=== PATIENT | female | born 1940 | race Caucasian/White ===

== ENCOUNTER 2022-07-28 18:02 | Inpatient (IN) | payer MEDICARE, OTHER ==
[~2022-07-28] VITALS: Ht 157.5 cm; Wt 56.2 kg
[2022-07-28 18:09] VITALS: BP 113/46
--- NOTE | 2022-07-28 18:24 | NUR ---
PER ERMD ONLY GIVE 500CC OF FLUIDS
[2022-07-28] MEDS ORDERED: ONDANSETRON 4 MG/2 ML VIAL IVP ONE (18:30)
[2022-07-28] MEDS ORDERED: NACL 0.9% 500 ML IV ONE (18:30)
--- NOTE | 2022-07-28 18:41 | NUR ---
PT TAKEN TO CT VIA ADRIANA
--- NOTE | 2022-07-28 18:45 | NUR ---
81YO FEMALE PT BIB [facility] C/O SYNCOPE AND N/V-BLOOD XTODAY. PER FACILITY, PT HYPOTENSIVE AND WAS AROUSABLE TO TOUCH. AT ARRIVAL PT W/ MILD BP IMPROVEMENT AND AAOX4. C/O BACK PAIN , PAIN AT MOST ON MOVEMENT OR TOUCH. PT W/ RECENT L5 INJURY AND UNAMBULATORY SINCE. ABDOMEN FLAT AND NON TENDER. ON HORSE SHOW MANAGER. BED AT LOWEST POSITION, BED RAILS UPX2. HX: CA BREAST, HTN. OSTEOPOROSIS, A FIB, HDL, HTN CHF, HYPOTHYROIDISM, CKD3 (NO DIALYSIS) NKA
[2022-07-28 19:22] LABS: BASOPHILS # (AUTO) 0.1 K/uL (0.00-0.22); BASOPHILS % (AUTO) 0.6 % (0.0-2.0); EOSINOPHILS # (AUTO) 0.2 K/uL (0-0.4); EOSINOPHILS % (AUTO) 1.4 % (0.0-4.0); HEMATOCRIT 38.8 % (36-48); HEMOGLOBIN 12.8 g/dL (12.0-16.0); LYMPHOCYTES # (AUTO) 0.4 K/uL (2.5-16.5); LYMPHOCYTES % (AUTO) 2.9 % (20.5-51.1); MEAN CORPUSCULAR HEMOGLOBIN 32 pg (27-31); MEAN CORPUSCULAR HGB CONC 33 g/dL (33-37); MEAN CORPUSCULAR VOLUME 95.9 fL (80-94); MONOCYTES # (AUTO) 0.6 K/uL (0.8-1.0); MONOCYTES % (AUTO) 4.6 % (1.7-9.3); NEUTROPHILS # (AUTO) 11.5 K/uL (1.8-7.7); NEUTROPHILS % (AUTO) 90.5 % (42.2-75.2); PLATELET COUNT (AUTO) 131 K/uL (140-450); RED BLOOD CELL COUNT(AUTO) 4.04 MIL/uL (4.20-5.40); RED CELL DISTRIBUTION WIDTH 15.4 % (11.6-13.7); WHITE BLOOD COUNT (AUTO) 12.7 K/uL (4.8-10.8)
--- NOTE | 2022-07-28 19:23 | NUR ---
PT SON RAYMON LEFT CONTACT INFO
--- NOTE | 2022-07-28 19:31 | NUR ---
REPORT GIVEN TO BART RN. TRANSFER OF CARE AT THIS TIME
--- NOTE | 2022-07-28 19:34 | NUR ---
COVID-19 swab collected and sent to lab.
[2022-07-28 19:44] LABS: ALBUMIN 2.7 g/dL (3.4-5.0); ANION GAP 12.5 (8-16); ASPARTATE AMINOTRANSFERASE 58 U/L (15-37); CARBON DIOXIDE 34.5 mmol/L (21-32); CHLORIDE 89 mmol/L (98-107); CREATININE 1.5 mg/dL (0.6-1.3); GLUCOSE 104 mg/dL (74-106); LIPASE 339 U/L (73-393); SODIUM SERUM 133 mmol/L (136-145)
[2022-07-28 19:48] LABS: UREA NITROGEN, BLOOD 83 mg/dL (7-18)
--- NOTE | 2022-07-28 19:54 | NUR ---
Spoke with patient's son to update patient's status.
--- NOTE | 2022-07-28 20:07 | NUR ---
BP 88/46 after NSS 500 ml bolus, Dr. Gross notified.
--- NOTE | 2022-07-28 20:09 | NUR ---
Dr. Gross examining patient.
[2022-07-28] MEDS ORDERED: POTA10TA70 PO (20:30)
[2022-07-28] MEDS ORDERED: ZAR2.5 PO (20:30)
[2022-07-28] MEDS ORDERED: DOCU-299 PO (20:30)
[2022-07-28] MEDS ORDERED: SYN.05 PO (20:30)
[2022-07-28] MEDS ORDERED: MONT10TA35 PO (20:30)
[2022-07-28] MEDS ORDERED: TORS20TA3 PO (20:30)
[2022-07-28] MEDS ORDERED: APIX5TAB PO (20:30)
[2022-07-28] MEDS ORDERED: ATOR10TA PO (20:30)
[2022-07-28] MEDS ORDERED: BISO5TAB30 PO (20:30)
[2022-07-28] MEDS ORDERED: [UNRECOGNIZED DRUG - CODE] PO (20:30)
--- NOTE | 2022-07-28 20:30 | NUR ---
Med-rec reviewed.
--- NOTE | 2022-07-28 20:40 | NUR ---
Patient tried to get out her bed, and states " They gave me salty food. I have cell phone with me. Call my son.", Patient came to ER without cell phone and no food given when patient came.
[2022-07-28] MEDS ORDERED: FUROSEMIDE 20 MG/2 ML VIAL IVP ONE (22:05)
--- NOTE | 2022-07-28 22:20 | NUR ---
Started IV right forearm 22 G
--- NOTE | 2022-07-28 22:45 | NUR ---
Patient's son came and given lumbar brace for patient.
--- NOTE | 2022-07-28 22:58 | NUR ---
Given aKsio to patient as request.
--- NOTE | 2022-07-28 23:02 | NUR ---
Patient's refused to wear lumbar brace.
[2022-07-28] MEDS ORDERED: KCL 20 MEQ/WATER INJ PREMIX 200 ML IV ONE (23:05)
--- NOTE | 2022-07-28 23:21 | NUR ---
SON MINGO LEFT CONTACT INFO FOLLOWS
--- NOTE | 2022-07-28 23:26 | NUR ---
Called patient's son (Paulo) [phone] to update patient's status.
[2022-07-29] VITALS (8 sets, daily range): BP systolic 89–108; BP diastolic 41–57
--- NOTE | 2022-07-29 00:11 | NUR ---
Provided blankets as request.
[2022-07-29] MEDS ORDERED: NACL 0.9% 500 ML IV ONE ×2 (01:20→04:05)
--- NOTE | 2022-07-29 03:07 | NUR ---
Patient appears to be resting comfortably in bed. Respirations even and unlabored.
[2022-07-29] MEDS ORDERED: MIDODRINE 5 MG TAB PO SCH (04:20)
--- NOTE | 2022-07-29 04:27 | NUR ---
Re-position patient and changed diaper
--- NOTE | 2022-07-29 05:29 | NUR ---
Spoke to patient's son (Mr. Bates) to update- patient admission.
--- NOTE | 2022-07-29 07:18 | NUR ---
Report given to MICHAEL Nova and endorse care of patient.
--- NOTE | 2022-07-29 08:00 | NUR ---
Patient will be admitted to care of DR. TEAGUE. Admited to ICU. Will go to room ICU 7. Belongings list completed. Report to MICHAEL RODRÍGUEZ.
--- NOTE | 2022-07-29 08:00 | NUR ---
RECEIVED PT ALERT AND ORIENTED X3. ON O2 2L VIA NASAL CANNULA. SINUS KAREN ON MONITOR. BOWEL SOUNDS HYPOACTIVE AND PT STATES SHE'S PASSING GAS. CONTINENT BOWEL AND BLADDER. PERIPHERAL IV 22 GAUGE ON RIGHT FOREARM INTACT AND SALINE LOCKED. ORIENTED PT TO ROOM, ENVIRONMENT, AND PROCEDURES. SAFETY PRECAUTIONS IN PLACE.
[2022-07-29] MEDS ORDERED: ONDANSETRON 4 MG/2 ML VIAL IM/IVP PRN (08:20)
[2022-07-29] MEDS ORDERED: POTASSIUM CHLORIDE 10 MEQ TABER PO PRN (08:20)
[2022-07-29] MEDS ORDERED: PIPERACILLIN/TAZOBACTAM 3.375 GM in DEXTROSE 5% 50 ML IV SCH (08:20)
[2022-07-29] MEDS ORDERED: HYDROcodone/APAP 7.5/325 MG 1 TAB PO PRN (08:20)
[2022-07-29] MEDS ORDERED: DOCUSATE SODIUM 100 MG GELCAP PO PRN ×2 (08:20→13:25)
[2022-07-29] MEDS ORDERED: ZOLPIDEM 5 MG TAB PO PRN (08:20)
[2022-07-29] MEDS ORDERED: PIPERACILLIN/TAZOBACTAM 2.25 GM in DEXTROSE 5% 50 ML IV SCH (08:30)
[2022-07-29] MEDS ORDERED: RENAL DOSING PER PHARMACY MC PRN (08:35)
--- NOTE | 2022-07-29 09:14 | NUR ---
PATIENT HAS BEEN SCREENED AND CATEGORIZED MODERATE NUTRITION RISK. PATIENT WILL BE SEEN WITHIN 3-5 DAYS OF ADMISSION. REVIEWED BY DINA CURIEL RD
--- NOTE | 2022-07-29 10:00 | NUR ---
SEEN AND EXAMINED BY DR. TEAGUE.
[2022-07-29] MEDS: PANTOPRAZOLE 40 MG TABEC PO SCH (10:23)
[2022-07-29] MEDS: NACL 0.9% 1,000 ML IV SCH (10:24)
--- NOTE | 2022-07-29 11:30 | NUR ---
RECEIVED REPORT THAT PT HAD NKA. WENT THROUGH CHART AND FOUND [facility] RECORD INDICATING PT IS ALLERGIC TO PCN, SULFA, NSAIDS, AND ALENDRONATE. UPDATED ALLERGIC REACTION ON COMPUTER SYSTEM AND NOTIFIED DR. TEAGUE. NEW ORDER TO DC RAMSEY. ALLERGY ARMBAND PLACED.
[2022-07-29 11:33] LABS: CHOL/HDL RATIO 1.4 (1-4.5); FREE T4 (FREE THYROXINE) 1.12 ng/dL (0.76-1.46); MAGNESIUM 1.5 mg/dL (1.8-2.4); PHOSPHORUS 3.1 mg/dL (2.5-4.9); THYROID STIMULATING HORMONE 2.69 uIU/mL (0.34-3.74)
[2022-07-29 11:50] LABS: PROTHROMBIN TIME 13.2 secs (10.8-13.4)
[2022-07-29] MEDS ORDERED: MAG SULF 2000 MG/WATER PREMIX 50 ML IV SCH (13:00)
--- NOTE | 2022-07-29 13:15 | NUR ---
SEEN AND EXAMINED BY DR. DAVIS. NEW ORDER RECEIVED.
--- NOTE | 2022-07-29 14:00 | NUR ---
SPOKE WITH BECKY ENNIS REGARDING PT UPDATE. BECKY ENNIS WANTS TO KNOW WHEN PT WILL BE TRANSFERRED TO [place] [place]. FORWARDED CALL TO [facility].
[2022-07-29 14:01] LABS: HEMATOCRIT 33.6 % (36-48); MEAN CORPUSCULAR HEMOGLOBIN 32 pg (27-31); MEAN CORPUSCULAR HGB CONC 33 g/dL (33-37); MEAN CORPUSCULAR VOLUME 96.8 fL (80-94); PLATELET COUNT (AUTO) 118 K/uL (140-450); RED BLOOD CELL COUNT(AUTO) 3.47 MIL/uL (4.20-5.40); RED CELL DISTRIBUTION WIDTH 15.4 % (11.6-13.7); WHITE BLOOD COUNT (AUTO) 18.4 K/uL (4.8-10.8)
--- NOTE | 2022-07-29 14:30 | NUR ---
PER JUN, PT WILL BE TRANSFERRED TO [facility] TOMORROW.
[2022-07-29 15:33] LABS: LYMPHOCYTES % (MANUAL) 3 % (20-46); MONOCYTES % (MANUAL) 3 % (5-12)
--- NOTE | 2022-07-29 16:50 | NUR ---
SEEN AND EXAMINED BY DR. OLIVARES.
[2022-07-29 17:28] LABS: ANION GAP 11.3 (8-16); CARBON DIOXIDE 31.7 mmol/L (21-32); CHLORIDE 91 mmol/L (98-107); CREATININE 1.4 mg/dL (0.6-1.3); GLUCOSE 141 mg/dL (74-106); SODIUM SERUM 131 mmol/L (136-145)
[2022-07-29 17:29] LABS: UREA NITROGEN, BLOOD 75 mg/dL (7-18)
--- NOTE | 2022-07-29 18:42 | NUR ---
SEEN AND EXAMINED BY DR. MASSEY. NEW ORDERS RECEIVED.
--- NOTE | 2022-07-29 19:12 | NUR ---
ENDORSED TO RESIDENTIAL INSTALLER NURSE NADIRA FOR CONTINUITY OF CARE.
[2022-07-29] MEDS: ALBUTEROL SULFATE/IPRATROPIU 3 ML SOL IH SCH (20:13)
--- NOTE | 2022-07-29 20:19 | NUR ---
PT WAS SEEN AND ASSESSED. PT IS AWAKE AND ALERT, ON ROOM AIR WITH SPO2 OF 98%. NO RESPIRATORY DISTRESS NOTED AT THIS TIME. BILATERAL COARSE BREATH SOUNDS ON AUSCULTATION. HHN SCHEDULE TX GIVEN ORDERED AND PT TOLERATED TX WELL WITH NO ADVERSE REACTION. WILL CONTINUE TO MONITOR PT.
[2022-07-30] VITALS (16 sets, daily range): BP systolic 96–134; BP diastolic 41–85
[2022-07-30] MEDS: NACL 0.9% 1,000 ML IV SCH ×2 (01:00→17:40)
[2022-07-30] MEDS: ALBUTEROL SULFATE/IPRATROPIU 3 ML SOL IH SCH ×3 (01:31→20:45)
[2022-07-30 06:00] LABS: BASOPHILS # (AUTO) 0.1 K/uL (0.00-0.22); BASOPHILS % (AUTO) 0.7 % (0.0-2.0); EOSINOPHILS # (AUTO) 0.6 K/uL (0-0.4); EOSINOPHILS % (AUTO) 4.5 % (0.0-4.0); HEMATOCRIT 32.5 % (36-48); LYMPHOCYTES # (AUTO) 0.9 K/uL (2.5-16.5); LYMPHOCYTES % (AUTO) 7.3 % (20.5-51.1); MEAN CORPUSCULAR HEMOGLOBIN 33 pg (27-31); MEAN CORPUSCULAR HGB CONC 34 g/dL (33-37); MEAN CORPUSCULAR VOLUME 96.1 fL (80-94); MONOCYTES # (AUTO) 1.1 K/uL (0.8-1.0); MONOCYTES % (AUTO) 8.3 % (1.7-9.3); NEUTROPHILS % (AUTO) 79.2 % (42.2-75.2); PLATELET COUNT (AUTO) 105 K/uL (140-450); RED BLOOD CELL COUNT(AUTO) 3.38 MIL/uL (4.20-5.40); RED CELL DISTRIBUTION WIDTH 15.1 % (11.6-13.7); WHITE BLOOD COUNT (AUTO) 12.7 K/uL (4.8-10.8)
[2022-07-30 06:33] LABS: CARBON DIOXIDE 30.5 mmol/L (21-32); CHLORIDE 95 mmol/L (98-107); CREATININE 1.3 mg/dL (0.6-1.3); GLUCOSE 89 mg/dL (74-106); POTASSIUM 3.5 mmol/L (3.5-5.1); SODIUM SERUM 133 mmol/L (136-145)
[2022-07-30 06:45] LABS: UREA NITROGEN, BLOOD 65 mg/dL (7-18)
--- NOTE | 2022-07-30 07:30 | NUR ---
RECEIVED ENDOSMENT FROM NADIRA NAGY. PT. SLEEPING AT THE TIME. SKIN DRY AND WARM TO TOUCH.IV RT AC GATE 20.
[2022-07-30] MEDS: PANTOPRAZOLE 40 MG TABEC PO SCH (09:00)
--- NOTE | 2022-07-30 09:00 | NUR ---
SEEN BY DR. KLEIN. NO ORDER RECEIVED,.
--- NOTE | 2022-07-30 10:00 | NUR ---
AWAKE , ALERT WARM HER BREAKFAST , ABLE TAKE HER BREAKFAST 80% .
--- NOTE | 2022-07-30 10:47 | NUR ---
TALK TO HER ON CELL PHONE.
--- NOTE | 2022-07-30 10:50 | NUR ---
PT. AT BED SIDE OOB AND WALK FEW STEPS IN HER ROOM WITH PHYSICAL THERAPY.
--- NOTE | 2022-07-30 11:39 | NUR ---
DC PLANNING: FAXED THE STABLE FOR TRANSFER ORDER TO [facility] [phone] CM TO FOLLOW Addendum: 07/30/22 at 1546 by Mervat Bravo RN DC PLANNING: RECEIVED A CALL FROM [facility] SPOKE WITH REN SPIVEY MD AUTHORIZE THE DAY AND REQUESTED ECHO TO BE DONE AND FINAL CARDIOLOGY RECOMMENDATIONS. Addendum: 08/03/22 at 1447 by Mervat Bravo RN DC PLANNING: PER IVY AND MARY RECOMMENDATIONS HELD THE DC BACK TO [facility]. FAXED THE STABLE FOR TRANSFER ORDER TO [facility]. SPOKE WITH 'S BECKY VILLASENOR REGARDING THE HOLD ON DC. AWAITING FOR [facility] TO RESPOND. CM TO FOLLOW Addendum: 08/04/22 at 1222 by Mervat Bravo RN DC PLANNING: RECEIVED A CALL FROM [facility] [phone] SPOKE WITH REN STATED [facility] [employer] WANTED TO KNOW FOR THE PLAN IF IV ABX PATIENT CAN BE DISCHARGED TO [facility]. NOTIFIED DR UMANA AND AWAITING FOR 'S RECOMMENDATION. CM TO FOLLOW Addendum: 08/04/22 at 1537 by Mervat Bravo RN DC PLANNING: PER DR UMANA PATIENT CAN BE DC TO [facility] AND CONTINUE MEDS. CALLED [facility] SPOKE WITH REN AND PER REN WILL ARRANGE TRANSPORT. CALLED [facility] FAXED ALL PAPERWORK . PATIENT CAN GO TO ROOM 30A # TO GIVE REPORT [phone] NOTIFIED TAI CHARGE NURSE.
--- NOTE | 2022-07-30 11:54 | NUR ---
P.T. NOTES P.T. EVAL COMPLETED; REFER TO EVAL FOR DETAILS.
[2022-07-30 12:08] LABS: T4 (THYROXINE) 6.8 ug/dL (4.5-12.0)
--- NOTE | 2022-07-30 16:00 | NUR ---
PT. INCONTINENT OF URINE AWAKE ANE ALERT DENIED PAIN.
--- NOTE | 2022-07-30 20:26 | NUR ---
INITIAL ASSESSMENT PT WAS SITTING UPRIGHT AND FINISHED 70% OF HER CARDIAC DIET MEAL. NS WAS RUNNING THROUGH THE 22G RIGHT WRIST IV WITHOUT SIGNS OF INFILTRATION. SHE IS FOLLOWING [facility] BUT HAS URINATED ALL OVER HERSELF. LINENS CHANGED AND PT WAS WIPED DOWN WITH THE BODY WIPES, SKIN WAS C/D/I WITHOUT SIGNS OF IRRITATION. PUREWICK WAS PLACED AND PT VERBALIZED UNDERSTANDING ON HOW TO KEEP IT SECURE BETWEEN HER LEGS. NO COMPLAINTS OF PAIN AT THIS TIME BUT DOES EXPRESS CONCERN OVER LACK OF BM. BEDPAN AT BEDSIDE FOR PRECAUTION THE PM NURSE REPORTED SHE GAVE STOOL SOFTENERS. WILL CONTINUE TO MONITOR
--- NOTE | 2022-07-30 20:51 | NUR ---
PT WAS SEEN AND ASSESSED. PT IS AWAKE AND ALERT, ON ROOM AIR WITH SPO2 OF 96%. NO RESPIRATORY DISTRESS NOTED AT THIS TIME. BILATERAL RALES BREATH SOUNDS ON AUSCULTATION. HHN SCHEDULE TX GIVEN ORDERED AND PT TOLERATED TX WELL WITH NO ADVERSE REACTION. WILL CONTINUE TO MONITOR PT.
[2022-07-31] VITALS: BP 119/63
[2022-07-31] MEDS: ALBUTEROL SULFATE/IPRATROPIU 3 ML SOL IH SCH ×3 (01:10→13:10)
[2022-07-31 04:00] VITALS: BP_SYST 106; BP_SYST 119; BP_DIAS 51; BP_DIAS 63
[2022-07-31 05:55] LABS: BASOPHILS # (AUTO) 0.1 K/uL (0.00-0.22); BASOPHILS % (AUTO) 1.1 % (0.0-2.0); EOSINOPHILS # (AUTO) 0.5 K/uL (0-0.4); EOSINOPHILS % (AUTO) 6.3 % (0.0-4.0); HEMATOCRIT 31.1 % (36-48); HEMOGLOBIN 10.5 g/dL (12.0-16.0); LYMPHOCYTES # (AUTO) 0.8 K/uL (2.5-16.5); MEAN CORPUSCULAR HEMOGLOBIN 33 pg (27-31); MEAN CORPUSCULAR HGB CONC 34 g/dL (33-37); MEAN CORPUSCULAR VOLUME 96.3 fL (80-94); MONOCYTES # (AUTO) 0.7 K/uL (0.8-1.0); MONOCYTES % (AUTO) 8.1 % (1.7-9.3); NEUTROPHILS # (AUTO) 6.2 K/uL (1.8-7.7); NEUTROPHILS % (AUTO) 74.5 % (42.2-75.2); PLATELET COUNT (AUTO) 116 K/uL (140-450); RED BLOOD CELL COUNT(AUTO) 3.23 MIL/uL (4.20-5.40); RED CELL DISTRIBUTION WIDTH 15.3 % (11.6-13.7); WHITE BLOOD COUNT (AUTO) 8.3 K/uL (4.8-10.8)
--- NOTE | 2022-07-31 06:51 | NUR ---
PT IS ASLEEP AND BUNDLED UP IN 5 WARMED BLANKETS DUE TO COMPLAINTS OF THE HOSPITAL BEING COLD. IV FLUID CONTINUING TO TRANSFUSE IN PATENT IV. SKIN IS C/D/I WITH PUREWICK IN PLACE
[2022-07-31 06:53] LABS: ANION GAP 13.8 (8-16); CARBON DIOXIDE 28.3 mmol/L (21-32); CHLORIDE 98 mmol/L (98-107); GLUCOSE 89 mg/dL (74-106); POTASSIUM 3.1 mmol/L (3.5-5.1); SODIUM SERUM 137 mmol/L (136-145); UREA NITROGEN, BLOOD 51 mg/dL (7-18)
[2022-07-31 08:00] VITALS: BP 124/70
[2022-07-31 09:00] VITALS: BP 129/53
[2022-07-31] MEDS: PANTOPRAZOLE 40 MG TABEC PO SCH (09:00)
[2022-07-31 10:00] VITALS: BP 119/55
--- NOTE | 2022-07-31 10:45 | NUR ---
PHYSICAL THERAPY AT BED SIDE TRY TO PUT ON HER BODY VEST , IT DID'T FIT ON RIGHT PT HAS A HARD TIME TO GET UP. BUT SHE TRIED AND ABLE TO GET UP AND GO TO BED SIDE COMMODE HAVE LARGE BM AND BACK TO BED.
--- NOTE | 2022-07-31 14:30 | NUR ---
SEEN BY DR. DAVIS AT BED SIDE, ORDER RECEIVED.
--- NOTE | 2022-07-31 15:00 | NUR ---
SEEN BY DR. OLIVARES. NO ORDER RECEIVE AT THE TIME.
--- NOTE | 2022-07-31 15:29 | NUR ---
DC PLANNING GAGAN FIELDED CALL FROM PTS SON, RAYMON. GAGAN GATHERED COLLATERAL INFORMATION FROM PTS SON WHO REPORTS PT IS A RECENT ADMIT FROM [facility]. RAYMON SNOW PT WAS RECENTLY ADMITTED TO [facility] ON 07/24/22. RAYMON SNOW PT TYPICALLY RESIDES AT [address] [place] [address] WHERE SHE RESIDES WITH HIM AND HIS . RAYMON SNOW PT IS A [facility] AND IS TYPICALLY SEEN BY [facility] PROVIDERS, HOWEVER, WAS SENT TO [facility]. RAYMON SNOW PT AT BASELINE IS VERBAL AND ABLE TO MAKE ALL HER NEEDS KNOWN. RAYMON DENIES KNOWLEDGE OF ADV AND ACCEPTED AD OFFERED BY GAGAN. RAYMON SNOW PT IS COMPLIANT WITH CARE AND WAS BEING SEEN BY A [facility] CARE TEAM THAT PROVIDED CARE 2X A WEEK BEFORE BEING ADMITTED TO [facility]. PT IS REPORTED TO BE MINIMALLY AMBULATORY WITH DME; FWW AND BRACE.PT REQUIRES ASSISTANCE WITH ADL'S THAT [facility] STAFF AIDS WITH. PT IS RECEIVING SKILLED CARE TO AID IN REGAINING STRENGTH NEEDED. RAYMON REPORTS PT IS TO WEAR BRACE WHEN SITTING UP IN BED AND WHEN WALKING AROUND, PT HOWEVER DOES NOT REQUIRE BRACE WHEN LAYING DOWN. RAYMON DENIES HX OF DIABETES, DIALYSIS, HOSPICE SERVICES. RAYMON INQUIRING ABOUT PT BEING TRANSFERRED TO [facility], GAGAN ANSWERED PTS QUESTIONS. RAYMON IN UNDERSTANDING. GAGAN INQUIRED ON RESOURCES NEEDED, RAYMON REQUESTING SW NOTIFY PHYSICAL THERAPIST THAT BRACE MUST BE WORN. GAGAN ENDORSED TO JEWELRY MAKING INSTRUCTOR. Addendum: 07/31/22 at 1530 by Hilton DURBIN Amended: Links added.
[2022-07-31] MEDS: POTASSIUM CHLORIDE 10 MEQ TABER PO SCH ×2 (16:00→20:00)
--- NOTE | 2022-07-31 19:30 | NUR ---
REPORT GIVE TO DANA RODRIGUEZ.
[2022-07-31 20:00] VITALS: BP 119/55
--- NOTE | 2022-07-31 20:00 | NUR ---
RECEIVED PATIENT AWAKE AND ALERT X4.ON ROOM AIR WITH NO ISSUES RESPIRATORY LAZARO.lUNGS SOUNDS ESSENTIALLY CLEAR.ABDOMEN ,SOFT ROUND WITH ABDOMINAL SOUNDS AT ALL QUADRANTS.NO EDEMA ON EXTREMITIES.VITALS STABLE PM CARE RENDERED.AFEBRILE.1 BM NOTED.WILL CONTINUE TO PROCEED WITH PLAN OF CARE.
[2022-08-01] VITALS: BP_SYST 119; BP_SYST 137; BP_DIAS 55; BP_DIAS 63
[2022-08-01] MEDS: ALBUTEROL SULFATE/IPRATROPIU 3 ML SOL IH SCH ×4 (01:00→19:00)
[2022-08-01 04:00] VITALS: BP 124/67
[2022-08-01 06:11] LABS: BASOPHILS # (AUTO) 0.1 K/uL (0.00-0.22); BASOPHILS % (AUTO) 1.3 % (0.0-2.0); EOSINOPHILS # (AUTO) 0.6 K/uL (0-0.4); HEMATOCRIT 31.6 % (36-48); HEMOGLOBIN 10.7 g/dL (12.0-16.0); LYMPHOCYTES # (AUTO) 0.8 K/uL (2.5-16.5); LYMPHOCYTES % (AUTO) 11.8 % (20.5-51.1); MEAN CORPUSCULAR HEMOGLOBIN 33 pg (27-31); MEAN CORPUSCULAR HGB CONC 34 g/dL (33-37); MEAN CORPUSCULAR VOLUME 96.6 fL (80-94); MONOCYTES # (AUTO) 0.8 K/uL (0.8-1.0); MONOCYTES % (AUTO) 12.2 % (1.7-9.3); NEUTROPHILS # (AUTO) 4.5 K/uL (1.8-7.7); NEUTROPHILS % (AUTO) 65.7 % (42.2-75.2); PLATELET COUNT (AUTO) 129 K/uL (140-450); RED BLOOD CELL COUNT(AUTO) 3.27 MIL/uL (4.20-5.40); RED CELL DISTRIBUTION WIDTH 15.4 % (11.6-13.7); WHITE BLOOD COUNT (AUTO) 6.8 K/uL (4.8-10.8)
[2022-08-01 06:35] LABS: ANION GAP 9.9 (8-16); CARBON DIOXIDE 28.1 mmol/L (21-32); CHLORIDE 100 mmol/L (98-107); GLUCOSE 80 mg/dL (74-106); SODIUM SERUM 133 mmol/L (136-145); UREA NITROGEN, BLOOD 36 mg/dL (7-18)
--- NOTE | 2022-08-01 07:00 | NUR ---
ENDORSE TO BELLE RODRIGUEZ.
--- NOTE | 2022-08-01 07:30 | NUR ---
RECEIVED PT IN BED AOX4. DENIES PAIN OR DISCOMFORT. AFIB ON MONITOR. RA 96%. IV INTACT AND PATENT SL. NAD. SAFETY MAINTAINED.
[2022-08-01 08:00] VITALS: BP 126/69
--- NOTE | 2022-08-01 08:00 | NUR ---
PT RECEIVED AND ACCESSED. SATURATION ON ROOM AIR WAS 9&%. BREATH SOUNDS WERE WHEEZY, BREATHING TREATMENT WAS GIVEN. EQUAL AND GOOD CHEST RISE. WILL CONTINUE TO MONITOR.
--- NOTE | 2022-08-01 08:00 | NUR ---
PT EATING BREAKFAST IN BED, NO CHANGES NOTED. SAFETY MAINTAINED.
[2022-08-01] MEDS: PANTOPRAZOLE 40 MG TABEC PO SCH (09:04)
[2022-08-01 12:00] VITALS: BP 124/73
--- NOTE | 2022-08-01 12:21 | NUR ---
PT INCONTINENT OF STOOL AND URINE, CLEANED AND REPOSITIONED FOR COMFORT. AFIB ON MONITOR. PT EATING LUNCH. NAD. SAFETY MAINTAINED
[2022-08-01 16:00] VITALS: BP 122/70
--- NOTE | 2022-08-01 16:30 | NUR ---
PT INCONTINENT OF STOOL AND URINE, CHANGED, BED BATH GIVEN LINENS CHANGED. WARM BLANKETS PROVIDED. AFIB CONTROLLED ON MONITOR. IV SL. NAD. SAFETY MAINTAINED.
--- NOTE | 2022-08-01 18:29 | NUR ---
PT EATING DINNER IN BED, NO CHANGES NOTED. SAFETY MAINTAINED.
--- NOTE | 2022-08-01 19:30 | NUR ---
RECEIVED PATIENT AWAKE ,ALERT AND ORIENTED .AFEBRILE.DENIES ANY PAIN DISCOMFORTSRILL ON ROOM AIR WITH NO RESPIRATORY PROBLEMS.LUNG SOUNS ESSENTIALLY CLEAR AND ABDOMEN BENIGN WITH POSITIVE BS X4 QUADS.NO EDEMA OBSERVED ON ALL EXTRIV ON RIGHT AC PATENT AND INTACT .WILL CONTINUE WITH MONITORING.EMITIES
[2022-08-01 20:00] VITALS: BP 122/70
[2022-08-02] VITALS: BP 126/58
[2022-08-02] MEDS: ALBUTEROL SULFATE/IPRATROPIU 3 ML SOL IH SCH ×3 (01:00→15:06)
[2022-08-02 04:00] VITALS: BP 126/71
[2022-08-02 06:01] LABS: BASOPHILS # (AUTO) 0.1 K/uL (0.00-0.22); EOSINOPHILS # (AUTO) 0.7 K/uL (0-0.4); EOSINOPHILS % (AUTO) 9.6 % (0.0-4.0); HEMATOCRIT 31.8 % (36-48); HEMOGLOBIN 10.6 g/dL (12.0-16.0); LYMPHOCYTES % (AUTO) 13.3 % (20.5-51.1); MEAN CORPUSCULAR HEMOGLOBIN 32 pg (27-31); MEAN CORPUSCULAR HGB CONC 33 g/dL (33-37); MONOCYTES # (AUTO) 1.2 K/uL (0.8-1.0); MONOCYTES % (AUTO) 16.1 % (1.7-9.3); NEUTROPHILS # (AUTO) 4.3 K/uL (1.8-7.7); PLATELET COUNT (AUTO) 129 K/uL (140-450); RED BLOOD CELL COUNT(AUTO) 3.28 MIL/uL (4.20-5.40); RED CELL DISTRIBUTION WIDTH 15.8 % (11.6-13.7); WHITE BLOOD COUNT (AUTO) 7.2 K/uL (4.8-10.8)
[2022-08-02 06:37] LABS: ANION GAP 12.5 (8-16); CARBON DIOXIDE 27.3 mmol/L (21-32); CHLORIDE 100 mmol/L (98-107); POTASSIUM 4.8 mmol/L (3.5-5.1); SODIUM SERUM 135 mmol/L (136-145); UREA NITROGEN, BLOOD 28 mg/dL (7-18)
--- NOTE | 2022-08-02 06:43 | NUR ---
TRANSFER PATIENT AND REPORT GIVEN TO SEAM HAMMERER CLINICAL CARE LEADER.
[2022-08-02 07:03] LABS: GLUCOSE 101 mg/dL (74-106)
--- NOTE | 2022-08-02 07:10 | NUR ---
ENDORSED PT TO DAY SHIFT RN FOR CONTINUITY OF CARE. PT IS STABLE.
[2022-08-02 08:00] VITALS: BP 126/71
[2022-08-02] MEDS: FUROSEMIDE 40 MG TAB PO SCH (11:26)
[2022-08-02] MEDS: PANTOPRAZOLE 40 MG TABEC PO SCH (11:26)
[2022-08-02 12:00] VITALS: BP 131/70
[2022-08-02 16:00] VITALS: BP 132/72
--- NOTE | 2022-08-02 19:55 | NUR ---
ENDORSE PATIENT IN STABLE CONDITION TO PM SHIFT NURSE WITH PIV 20G R. AC SALINE LOCK. ST EVAL ORDERED AND PENDING FOR RESULT.
[2022-08-02 20:00] VITALS: BP 113/67
--- NOTE | 2022-08-02 20:00 | NUR ---
ST BLOOM DONE BY SPEECH THERAPIST ANTONIO LOZANO CAN HAVE MECHANICAL SOFT WITH THIN LIQUIDS.
[2022-08-02] MEDS: guaiFENesin DM 200/20 MG-10 ML 10 ML UDC PO PRN (23:14)
--- NOTE | 2022-08-02 23:14 | NUR ---
NOTED PT WITH FREQUENT COUGH, COUGH MEDICATION ADMINISTERED ORDER.
[2022-08-03] VITALS: BP 116/62
[2022-08-03] MEDS: ACETAMINOPHEN 325 MG TAB PO PRN (01:37)
--- NOTE | 2022-08-03 01:37 | NUR ---
PT COMPLAINTS OF HEADACHE, TYLENOL ADMINISTERED ORDER.
[2022-08-03] MEDS: ALBUTEROL SULFATE/IPRATROPIU 3 ML SOL IH SCH ×3 (01:41→19:37)
--- NOTE | 2022-08-03 03:00 | NUR ---
PT IS ASLEEP
[2022-08-03 04:00] VITALS: BP 117/46
--- NOTE | 2022-08-03 05:00 | NUR ---
PT SLEEPING WELL
[2022-08-03 05:58] LABS: BASOPHILS # (AUTO) 0.1 K/uL (0.00-0.22); BASOPHILS % (AUTO) 1.4 % (0.0-2.0); EOSINOPHILS # (AUTO) 0.7 K/uL (0-0.4); EOSINOPHILS % (AUTO) 10.5 % (0.0-4.0); HEMATOCRIT 30.3 % (36-48); HEMOGLOBIN 10.2 g/dL (12.0-16.0); LYMPHOCYTES # (AUTO) 0.9 K/uL (2.5-16.5); LYMPHOCYTES % (AUTO) 13.5 % (20.5-51.1); MEAN CORPUSCULAR HEMOGLOBIN 33 pg (27-31); MEAN CORPUSCULAR HGB CONC 34 g/dL (33-37); MEAN CORPUSCULAR VOLUME 96.5 fL (80-94); MONOCYTES # (AUTO) 1.2 K/uL (0.8-1.0); MONOCYTES % (AUTO) 16.5 % (1.7-9.3); NEUTROPHILS # (AUTO) 4.1 K/uL (1.8-7.7); NEUTROPHILS % (AUTO) 58.1 % (42.2-75.2); PLATELET COUNT (AUTO) 131 K/uL (140-450); RED BLOOD CELL COUNT(AUTO) 3.14 MIL/uL (4.20-5.40); RED CELL DISTRIBUTION WIDTH 15.4 % (11.6-13.7)
[2022-08-03 07:14] LABS: ANION GAP 12.5 (8-16); CARBON DIOXIDE 28.1 mmol/L (21-32); CHLORIDE 99 mmol/L (98-107); CREATININE 1.1 mg/dL (0.6-1.3); GLUCOSE 87 mg/dL (74-106); POTASSIUM 4.6 mmol/L (3.5-5.1); SODIUM SERUM 135 mmol/L (136-145); UREA NITROGEN, BLOOD 29 mg/dL (7-18)
--- NOTE | 2022-08-03 07:20 | NUR ---
PT IS ON STABLE CONDITION. ALL SAFETY MEASURES ARE IN PLACE. ENDORSE TO DAY SHIFT NURSE FOR CONTINUITY OF CARE.
[2022-08-03 08:00] VITALS: BP 128/72
[2022-08-03] MEDS ORDERED: FURO40TA9 PO (08:24)
[2022-08-03] MEDS ORDERED: PANT40EC56 PO (08:24)
[2022-08-03] MEDS: PANTOPRAZOLE 40 MG TABEC PO SCH (08:41)
[2022-08-03] MEDS: FUROSEMIDE 40 MG TAB PO SCH (08:41)
[2022-08-03 12:00] VITALS: BP 130/75
[2022-08-03] MEDS: guaiFENesin DM 200/20 MG-10 ML 10 ML UDC PO PRN (13:38)
[2022-08-03 16:00] VITALS: BP 136/73
--- NOTE | 2022-08-03 19:38 | NUR ---
RECEIVED ENDORSEMENT FROM DAY SHIFT NURSE FOR CONTINUITY OF CARE. PT IS SLEEPING. PT IS ON MECHANICAL SOFT DIET. SHE IS USING O2 INHALATION VIA NASAL CANULA. SALINE LOCK ON RIGHT FOREARM 22G INTACT AND PATENT.
--- NOTE | 2022-08-03 19:41 | NUR ---
ENDORSE PATIENT IN STABLE CONDITION TO PM SHIFT NURSE WITH PIV 20G R. AC SALINE LOCK. PATRIC FLOREZ CALLED FOR PATIENT CONDITION FOR POSSIBLE TRANSFER TO [facility]
[2022-08-03 20:00] VITALS: BP 128/60
[2022-08-03] MEDS: ALBUTEROL 0.083% 2.5 MG/3 ML NEBU INH PRN (21:02)
--- NOTE | 2022-08-03 21:15 | NUR ---
PT HAD BREATHING TREATMENT WITH RT.
--- NOTE | 2022-08-03 22:10 | NUR ---
PERSONAL HYGIENE GIVEN. NO BM.
[2022-08-04] VITALS: BP 136/89
[2022-08-04] MEDS: ALBUTEROL SULFATE/IPRATROPIU 3 ML SOL IH SCH ×3 (01:20→13:00)
[2022-08-04 04:00] VITALS: BP 128/65
[2022-08-04 05:35] LABS: BASOPHILS # (AUTO) 0.1 K/uL (0.00-0.22); BASOPHILS % (AUTO) 1.2 % (0.0-2.0); EOSINOPHILS # (AUTO) 0.8 K/uL (0-0.4); EOSINOPHILS % (AUTO) 11.2 % (0.0-4.0); HEMATOCRIT 28.2 % (36-48); HEMOGLOBIN 9.8 g/dL (12.0-16.0); LYMPHOCYTES % (AUTO) 13.7 % (20.5-51.1); MEAN CORPUSCULAR HEMOGLOBIN 33 pg (27-31); MEAN CORPUSCULAR HGB CONC 35 g/dL (33-37); MEAN CORPUSCULAR VOLUME 94.9 fL (80-94); MONOCYTES % (AUTO) 14.2 % (1.7-9.3); NEUTROPHILS # (AUTO) 4.3 K/uL (1.8-7.7); NEUTROPHILS % (AUTO) 59.7 % (42.2-75.2); PLATELET COUNT (AUTO) 123 K/uL (140-450); RED BLOOD CELL COUNT(AUTO) 2.97 MIL/uL (4.20-5.40); WHITE BLOOD COUNT (AUTO) 7.2 K/uL (4.8-10.8)
[2022-08-04 06:15] LABS: ANION GAP 12.2 (8-16); CARBON DIOXIDE 27.8 mmol/L (21-32); CHLORIDE 98 mmol/L (98-107); CREATININE 0.9 mg/dL (0.6-1.3); GLUCOSE 82 mg/dL (74-106); SODIUM SERUM 134 mmol/L (136-145); UREA NITROGEN, BLOOD 26 mg/dL (7-18)
[2022-08-04] MEDS: guaiFENesin DM 200/20 MG-10 ML 10 ML UDC PO PRN (06:19)
--- NOTE | 2022-08-04 06:20 | NUR ---
PT WITH FREQUENT COUGH. COUGH SYRUP ADMINISTERED ORDER.
--- NOTE | 2022-08-04 07:20 | NUR ---
RECEIVED PT FROM NIGHT RN, PT IS AWAKE, AND ALERT AND LYING SUPINE ON THE BED WITH SIDE RAILS UP AND CALL LIGHT WITHIN REACH, PT IS ON O2 2L NC, IV LINE NOTED ON THE RIGHT AC G. 22 ON SALINE LOCK, PT DENIES PAIN AND NO SIGN OF DISTRESS NOTED, WILL CONTINUE TO MONITOR PT.
--- NOTE | 2022-08-04 07:36 | NUR ---
TX GIVEN TO PT DUE TO WHEEZING. FOUND PT ON 2L NC HR 103 SPO2 98%. PT WAS TAKING OFF O2 DUE TO NOT INDICATED. PT STATED SHE DOESN'T USE O2 AT HOME. WILL LET NURSE KNOW O2 IS NOT INDICATED AT THIS TIME. PT TOLERATED TX WELL. WILL CONTINUE TO MONITOR.
[2022-08-04] MEDS: ALBUTEROL 0.083% 2.5 MG/3 ML NEBU INH PRN ×2 (07:42→11:31)
--- NOTE | 2022-08-04 07:48 | NUR ---
PT WAS GIVEN ALB 2.5MG PRN DUE TO CONTINUOS WHEEZING I/E. MEDICAL STUDENT CAME IN TO FOLLOW UP TOLD HER I WAS GIVING A PRN WELL DUO ROUTINE. ALSO UPDATED HER ON PT BEING TAKEN OFF O2. WILL CONTINUE TO MONITOR.
--- NOTE | 2022-08-04 07:56 | NUR ---
SPOKE TO RT AND SAID THAT PT IS SATURATING AT 100% AND OXYGEN WAS TAKEN OFF AND PT NOW IS ON ROOM AIR.
[2022-08-04 08:00] VITALS: BP 146/77
--- NOTE | 2022-08-04 08:27 | NUR ---
PHYSICAL THERAPIST IS DOING EVALUATION TO PT NOW. PT IS SEEN WALKING WITH PT USING A WALKER INSIDE THE ROOM.
[2022-08-04] MEDS: PANTOPRAZOLE 40 MG TABEC PO SCH (08:30)
[2022-08-04] MEDS: FUROSEMIDE 40 MG TAB PO SCH (08:30)
[2022-08-04] MEDS ORDERED: methylPREDNISolone SS 40 MG/ML VIAL IVP SCH ×2 (09:00→14:15)
[2022-08-04] MEDS ORDERED: ACETYLCYSTEINE 10% (100 MG/ML) 100 MG/ML VIAL INH PRN (09:05)
[2022-08-04 12:00] VITALS: BP 119/76
[2022-08-04] MEDS ORDERED: ALBU0.0912 INH (13:02)
[2022-08-04 16:00] VITALS: BP 135/68
--- NOTE | 2022-08-04 16:04 | NUR ---
08/04/22 RD INITIAL ASSESSMENT COMPLETED PLEASE REFER TO NUTRITION ASSESSMENT UNDER CARE ACTIVITY FOR ESTIMATED NUTRITIONAL NEEDS. 1. CONTINUE MECHANICAL SOFT DIET TOLERATED 2. RECOMMEND ADDING CARDIAC TO MECHANICAL SOFT DIET 3. RECOMMEND ENSURE 1XDAY TO HELP INCREASE PO INTAKE - PROVIDES 350 KCAL AND 20 GM PROTEIN DAILY 4. PROVIDED NUTRITION EDUCATION WITH HANDOUTS ON A HEART HEALTHY DIET 5. RD TO FOLLOW-UP 7 DAYS, LOW RISK REVIEWED BY DINA CURIEL RD
--- NOTE | 2022-08-04 16:44 | NUR ---
CALLED [facility] AND GAVE REPORT TO TUBER MACHINE OPERATOR, OLIMPIA, REGARDING CARE MANAGEMENT TO PT, PT WILL BE WAITER/WAITRESS CLUB BY S AMBULANCE AT 1700h AND WILL BE PLACE IN ROOM 30-A AND ACCEPTING PHYSICIAN IS DR. THOMAS.
[2022-08-04] MEDS: ACETAMINOPHEN 325 MG TAB PO PRN (17:06)
--- NOTE | 2022-08-04 17:37 | NUR ---
DIS[facility]GED [facility] TO [facility] ACCOMPANIED BY AMBULANCE PERSONNEL, DISCHARGED TEACHING AND INSTRUCTIONS GIVEN, IV LINE REMOVED AND PT IS STABLE AT THIS TIME.
[2022-08-04] MEDS ORDERED: MONTELUKAST SODIUM 10 MG TAB PO SCH (21:00)
--- NOTE | 2022-08-10 16:58 | NUR ---
PT DC'D TO [facility] ON 08/04/22 AT 1745
== END 2022-08-04 17:40 | DRG 871 ==
LOC: MED 18:02 → MMU 07-29 04:27 → MIC 07-29 06:24 → MMU 08-02 06:11
PROVIDERS: ADMIT Family Medicine; ATTEND Family Medicine
DX: A41.9 Sepsis, unspecified organism (principal); E43 Unspecified severe protein-calorie malnutrition; N17.0 Acute kidney failure with tubular necrosis; G93.41 Metabolic encephalopathy; J96.01 Acute respiratory failure with hypoxia; J69.0 Pneumonitis due to inhalation of food and vomit; I50.33 Acute on chronic diastolic (congestive) heart failure; I31.39 Other pericardial effusion (noninflammatory); E87.1 Hypo-osmolality and hyponatremia; I13.0 Hypertensive heart and chronic kidney disease with heart failure and stage 1 through stage 4 chronic kidney disease, or unspecified chronic kidney disease; E03.9 Hypothyroidism, unspecified; I25.10 Atherosclerotic heart disease of native coronary artery without angina pectoris; E78.5 Hyperlipidemia, unspecified; E83.42 Hypomagnesemia; R74.01 Elevation of levels of liver transaminase levels; I36.1 Nonrheumatic tricuspid (valve) insufficiency; Z20.822 Contact with and (suspected) exposure to COVID-19; N18.9 Chronic kidney disease, unspecified; D64.9 Anemia, unspecified; I34.2 Nonrheumatic mitral (valve) stenosis; I35.0 Nonrheumatic aortic (valve) stenosis; E87.6 Hypokalemia; E86.0 Dehydration; Z85.3 Personal history of malignant neoplasm of breast; Z90.49 Acquired absence of other specified parts of digestive tract; Z90.710 Acquired absence of both cervix and uterus; Z88.6 Allergy status to analgesic agent; Z88.2 Allergy status to sulfonamides; Z88.8 Allergy status to other drugs, medicaments and biological substances; Z68.22 Body mass index [BMI] 22.0-22.9, adult
CPT/HCPCS: 36415; 70450; 71045; 80048; 80053; 82150; 83036; 83690; 83735; 83880; 84100; 84436; 84439; 84443; 84479; 84484; 85025; 85610; 85730; 87081; 92526; 93005; 94640; 96361; 96365; 96366; 96375; 97110; 97116; 97163-GP; 97530; 99285; J0696; J1940; J2405; J2543; J2920; J3475; J3480; J7030; J7060; J7613; Q0092